=== PATIENT | male | born 1935 | race Caucasian/White ===

== ENCOUNTER 2019-12-08 14:32 | Emergency (ER) | payer MEDICARE ==
[~2019-12-08] VITALS: Ht 177.8 cm; Wt 69.9 kg
--- NOTE | 2019-12-08 15:25 | NUR ---
hill inserted without restistance, 50cc of dark red urine obtained, hill then flushed with 100cc of ns and a return of 200 ccs of pink colored urine, pt tolorated well. Dr Morse aware, pt denies pain and sates he feels better,. leg bag applied per pt request. pt asked when he should follow up with uroligist and was told next week by Dr Morse. 20 cc of dark red urine noted at discharge.
[2019-12-08] MEDS ORDERED: CEFDINIR300 MG PO (15:41)
--- NOTE | 2019-12-08 15:42 | Emergency Department Note ---
History of Present Illnes History of Present Illness Chief Complaint: can't urinate /suprapubic pain x 1 day History of Present Illness This is a 84 year old male. h/o bph and urinary retention. saw urologist today and hill was removed but failed to have a hill placed back in. was sent to er for coude hill placement Historian: Patient Arrival Mode: Car History limited by: condition of the patient Leather Belt Loop Cutter Required: No Onset (how long ago): day(s) (1) Location: suprapubic Quality: sharp Radiation: Reports non-radiation Severity: moderate Onset quality: gradual Duration (how long): day(s) (1) Timing of current episode: constant Chronicity: new Context: Denies recent illness, Denies recent surgery Relieving factors: none Exacerbating factors: movement Associated symptoms: Reports denies other symptoms Treatments prior to arrival: none Past Medical/Family History Physician Review I have reviewed the patient's past medical and family history. Any updates have been documented here. Past Medical History Recent Fever: No Clinical Suspicion of Infectio: No New/Unexplained Change in Ment: No Other Medical History: colon cancer Past Surgical History: Colon Resection Social History Smoking Cessation: Never Smoker Counseling Performed: No Alcohol Use: None Any Illegal Drug Use: No TB Exposure/Symptoms: No Physically hurt or threatened: No Family History Family history of heart diseas: No Other Any Pre-Existing Lines (PICC,: No Is patient up to date on immun: No Review of Systems Review of Systems Constitutional: Reports no symptoms EENTM: Reports no symptoms Cardiovascular: Reports no symptoms Respiratory: Reports no symptoms Gastrointestinal: Reports no symptoms Genitourinary: Reports as per HPI Musculoskeletal: Reports no symptoms Integumentary: Reports no symptoms Neurological: Reports no symptoms Psychological: Reports no symptoms Endocrine: Reports no symptoms Hematological/Lymphatic: Reports no symptoms Review of other systems: All other systems negative Physical Exam Related Data Vital signs reviewed: Yes Physical Exam CONSTITUTIONAL Constitutional: Present well-developed, Present well-nourished HENT HENT: Present normocephalic, Present atraumatic, Present oropharynx clear/moist, Present nose normal HENT L/R: Present left ext ear normal, Present right ext ear normal EYES Eyes: Reports PERRL, Reports conjunctivae normal NECK Neck: Present ROM normal PULMONARY Pulmonary: Present effort normal, Present breath sounds normal CARDIOVASCULAR Cardiovascular: Present regular rhythm, Present heart sounds normal, Present capillary refill normal, Present normal rate GASTROINTESTINAL Abdominal: Present soft, Present bowel sounds normal, Present tender (suprpubic), Present guarding GENITOURINARY Genitourinary: Present exam deferred SKIN Skin: Present warm, Present dry MUSCULOSKELETAL Musculoskeletal: Present ROM normal NEUROLOGICAL Neurological: Present alert, Present oriented x 3, Present no gross motor or sensory deficits PSYCHOLOGICAL Psychological: Present mood/affect normal, Present judgement normal Assessment & Plan Medical Decision Making MDM see below Reassessment Reassessment pain resolved s/p decompression of bladder s/p hill placement and urine output 200 ml Assessment & Plan Final Impression: (1) Urinary retention Depart Disposition: HOME, SELF-longterm Meds Active Scripts Cefdinir (OMNICEF) 300 Mg Capsule, 300 MG PO Q12H, #20 CAP Prov:JOVANNI PLUMMER 12/08/19 JOVANNI PLUMMER Dec 08, 2019 15:42
--- OUTSIDE RECORDS SUMMARY | 2019-12-08 16:08 | XMS REPORT ---
Author Author Galo Kelly Organization [employer] Address Unknown Phone Unavailable Care Team Providers Care Wire Bound Box Machine Helper Name Role Phone Checo Kelly CP Unavailable Allergies, Adverse Reactions, Alerts Substance Reaction Event Type N.K.D.A. Info Not Available Non Drug Allergy Problems Problem Type Condition Code Onset Dates Condition Statu s Assessment Carotid stenosis, right I65.21 Acti ve Assessment Dyslipidemia E78.5 Active Assessment Other symptoms involving cardiovascular system R09.89 Active Problem Dyslipidemia E78.5 Active Problem HTN (hypertension), benign I10 A ctive Problem Carotid stenosis, right I65.21 Acti ve Assessment Dizziness R42 Active Assessment HTN (hypertension), benign I10 A ctive Assessment Syncope and collapse R55 Active Medications Medication Code System Code Instructions Start Date End Date Status Dosage Tamsulosin HCl ND 72600642036 0.4 MG Orally Once a day Active 1 capsule Dutasteride ND 74319669978 0.5 MG Orally Once a day Active 1 capsule HydrOXYzine HCl ND 82977512601 25 MG Orally every 8 hrs Active 1 tablet as needed Doxazosin Mesylate ND 34348237882 4 MG Orally Once a day Active 1 tablet Aspirin ND 25346093006 81 MG Orally Once a day September 21, 2019 Active 1 tablet Vital Signs Date/Time: September 21, 2019 BMI 30.93 Index Weight 158.4 lbs Height 5'9 in Cardiac Monitoring Heart Rate 68 /min Blood Pressure Diastolic 58 mm Hg Blood Pressure Systolic 100 mm Hg Results No Known Results Summary Purpose [employer] Submission
--- OUTSIDE RECORDS SUMMARY | 2019-12-08 16:08 | XMS REPORT | Continuity of Care Document ---
Author Author [facility] t Organization [facility] Address [address] [place] [address] Phone Unavailable Care Team Providers Care Dental Hygienist Name Role Phone Unavailable Unavailable Payers Payer Name Policy Type Policy Number Effective Date Expiration Date S ource Problems Condition Name Condition Details Condition Category Status Onset Date Resolution Date Last Treatment Date Treating Clinician Comments Source HTN (hypertension), benign HTN (hypertension), benign Active Problem 09/23/2019 [facility] Cardiovascular Problem Active 2019-09-23 02:45:39 [facility] Dyslipidemia Dysl ipidemia Active Diagnosis 09/23/2019 [facility] Cardiovascular Diagnosis Active 2019-09-23 02:45:39 [facility] Syncope and collapse Sync ope and collapse Active Diagnosis 09/23/2019 [facility] Cardiovascular Diagnosis Active 2019-09-23 02:45:39 [facility] Dizziness Dizz iness Active Diagnosis 09/23/2019 [facility] Cardiovascular Diagnosis Active 2019-09-23 02:45:39 [facility] Other symptoms involving cardiovascular system Other symptoms involving cardiovascular system Active Diagnosis 09/23/2019 [facility] Cardiovascular Diagnosis Active 2019-09-23 02:45:39 [facility] [place] Carotid stenosis, right [place] tid stenosis, right Active Diagnosis 09/23/2019 [facility] Cardiovascular Diagnosis Active 2019-09-23 02:45:39 [facility] Allergies, Adverse Reactions, Alerts Allergy Name Allergy Type Status Severity Reaction(s) Onset Date Inacti ve Date Treating Clinician Comments Source N.MollyA. N.KCalixto.A. Active Info Not Available 2019-09-21 00:00:00 [facility] Medications Ordered Medication Name Filled Medication Name Start Date Stop Da te Current Medication? Ordering Clinician Indication Dosage Frequency Signature (SIG) Comments Components Source Doxazosin Mesylate 2019-09-23 02:45:39 Yes Mohamed Robin 1 tablet [facility] [place] Dutasteride 2019-09-23 02:45:39 Yes Mohamed Robin 1 capsule [facility] HydrOXYzine HCl 2019-09-23 02:45:39 Yes Mohamed Robin 1 tablet as needed [facility] [place] Tamsulosin HCl 2019-09-23 02:45:39 Yes Mohamed Robin 1 capsule [facility] Aspirin 2019-09-21 00:00:00 Yes Mohamed Robin 1 tablet [facility] [place] Vital Signs Vital Name Observation Time Observation Value Comments Source Weight 2019-09-21 19:30:00 [facility] [place] Heart Rate 2019-09-21 19:30:00 [facility] Diastolic (mm Hg) 2019-09-21 19:30:00 [facility] [place] Systolic (mm Hg) 2019-09-21 19:30:00 [facility] [place] Procedures This patient has no known procedures. Encounters Start Date/Time End Date/Time Encounter Type Admission Type [facility] Care Department Encounter ID Source 2019-09-21 14:30:00 2019-09-21 14:30:00 Outpatient Checo Tierney [id number] [employer] 2019-09-10 08:30:00 2019-09-10 08:30:00 Outpatient Checo Tierney [id number] [employer] 2019-09-03 15:15:00 2019-09-03 15:15:00 Outpatient Checo Tierney [id number] [employer] 2019-09-03 15:15:00 2019-09-03 15:15:00 Outpatient Checo Tierney [id number] [employer] 2019-08-12 03:48:00 2019-08-12 03:48:00 Emergency [facility] [id number] [facility] Results Test Description Test Time Test Comments Results Result Comments Source - DUP VEIN UNI LT 2019-11-27 13:17:00 Name: MADISON DELGADO [facility] : 1935 Age/S: 84 / M [id number] Unit #: [id number] Loc: [place] [address] Phys: Jodee Zamorano MD Acct: [id number] Dis Date: Status: REG CLI PHONE #: [phone] Exam Date: 11/27/2019 1120 FAX #: Reason: DVT EXAMS: CPT: [id number] [place] [id number] EXAMINATION: - DUP VEIN UNI LT. LOCATION: S17. HISTORY: Left leg swelling for 3 weeks, history of prostate cancer. COMPARISON: None. FINDINGS: Sonographic evaluation of left lower extremity was performed from the common femoral veins to the popliteal trifurcations utilizing grayscale, pulse Doppler, and color flow imaging. The veins are normally compressible. There is normal respiratory phasicity and augmentation demonstrated. Color flow is demonstrated. The visualized proximal calf veins demonstrate flow on color imaging. Additional findings: Thrombus is noted within proximal left GSV and mid thigh. Multiple enlarged lymph nodes in left groin measuring up to 2.3 x 1.9 cm, nonspecific. Scattered subcutaneous edema in the region of calf and thigh. IMPRESSION: Thrombophlebitis of left GSV, a superficial vein. No evidence of deep venous thrombus in the visualized portions of the left lower extremities. Multiple enlarged lymph nodes in left groin, nonspecific. Findings discussed with MD Jaun at 11/27/2019 1:10 PM. at 1317 Reported and signed by: Erin Javed M.D. CC: Jodee Zamorano MD Technologist: Jessenia Barrett, RT(R),RDMS(AB) Trnscb Date/Time: 11/27/2019 (1317) MayelinANS4 PAGE 1 Signed Report Name: MADISON ALFORD : 1935 Age/S: 84 / M [id number] Unit #: [id number] Loc: [place] [address] Phys: Jodee Zamorano MD Acct: [id number] Dis Date: Status: REG CLI PHONE #: [phone] Exam Date: 11/27/2019 1120 FAX #: Reason: DVT EXAMS: CPT: [id number] [place] [id number] &l t;Continued> Orig Print D/T: S: 11/27/2019 (9883) Probe: PAGE 2 Signed Report
--- OUTSIDE RECORDS SUMMARY | 2019-12-08 16:08 | XMS REPORT ---
Author Author Galo Kelly Organization [employer] Address Unknown Phone Unavailable Care Team Providers Care Senior Radiation Protection Technician Name Role Phone Checo Kelly CP Unavailable Allergies No Known Allergies Problems Problem Type Condition Code Onset Dates Condition Statu s Problem HTN (hypertension), benign I10 A ctive Problem Dyslipidemia E78.5 Active Assessment HTN (hypertension), benign I10 A ctive Assessment Dyslipidemia E78.5 Active Assessment Syncope and collapse R55 Active Assessment Dizziness R42 Active Medications No Known Medications Results No Known Results Summary Purpose [employer] Submission
--- OUTSIDE RECORDS SUMMARY | 2019-12-08 16:08 | XMS REPORT ---
Author Author Galo Kelly Organization [employer] Address Unknown Phone Unavailable Care Team Providers Care Bar Tacker Sewing Machine Name Role Phone Checo Kelly CP Unavailable Allergies, Adverse Reactions, Alerts Substance Reaction Event Type N.K.D.A. Info Not Available Non Drug Allergy Problems Problem Type Condition Code Onset Dates Condition Statu s Assessment Other symptoms involving cardiovascular system R09.89 Active Problem HTN (hypertension), benign I10 A ctive Problem Dyslipidemia E78.5 Active Assessment HTN (hypertension), benign I10 A ctive Assessment Dyslipidemia E78.5 Active Assessment Syncope and collapse R55 Active Assessment Dizziness R42 Active Medications Medication Code System Code Instructions Start Date End Date Status Dosage Doxazosin Mesylate [facility] 86137999438 4 MG Orally Once a day Active 1 tablet Dutasteride ND 17495582213 0.5 MG Orally Once a day Active 1 capsule HydrOXYzine HCl ND 43916470629 25 MG Orally every 8 hrs Active 1 tablet as needed Tamsulosin HCl ND 82275837254 0.4 MG Orally Once a day Active 1 capsule Results No Known Results Summary Purpose [employer] Submission
--- OUTSIDE RECORDS SUMMARY | 2019-12-08 16:08 | XMS REPORT | Continuity of Care Document ---
Author Author Roddy Erwin [facility] [employer] Address Unknown Phone Unavailable Care Team Providers Care Steno Pool Supervisor Name Role Phone [employer] Unavailable Un available Problems Problem Status Onset Date Classification Date Reported Comments Source HTN (hypertension), benign Act tricia Problem [facility] Cardiovascular Dyslipidemia Active Diagnosis 09/23/2019 [facility] Syncope and collapse Active Diagnosis 09/23/2019 [facility] Dizziness Active Diagnosis 09/23/2019 [facility] Cardiovascular Other symptoms involving cardiovascular system Active Diagnosis 09/23/2019 [facility] Cardi[facility] Carotid stenosis, right Active Diagnosis 09/23/2019 [facility] Cardiovascular Medications Medication Details Route Status Patient Instructions Ordering Provider Order Date Source Aspirin 1 tablet Orally Active 81 MG Orally Once a day Robin 09/21/2019 [facility] Doxazosin Mesylate 1 tablet Orally Active 4 MG Orally Once a day Robin [facility] Dutasteride 1 capsule Orally Active 0.5 MG Orally Once a da y Robin [facility] HydrOXYzine HCl 1 tablet as ne eded Orally Active 25 MG Orally every 8 hrs Robin [facility] Tamsulosin HCl 1 capsule Orally Active 0.4 MG Orally Once a da y Robin [facility] Allergies, Adverse Reactions, Alerts Substance Category Reaction Severity Reaction type Status Date Reported Comments Source N.K.D.A. Adverse Reaction Info Not Available Adverse Reaction 09/21/2019 [facility] Immunizations No Data Provided for This Section Results No Data Provided for This Section Pathology Reports No Data Provided for This Section Diagnostic Reports No Data Provided for This Section Consultation Notes No Data Provided for This Section Discharge Summaries No Data Provided for This Section History and Physicals No Data Provided for This Section Vital Signs Vital Sign Value Date Comments Source Weight 158.4 09/21/2019 [facility] Cardiovascular Heart Rate 68 09/21/2019 [facility] Diastolic (mm Hg) 58 09/21/2019 [facility] Systolic (mm Hg) 100 09/21/2019 [facility] Encounters No Data Provided for This Section Procedures No Data Provided for This Section Assessment and Plan No Data Provided for This Section Plan of Care No Data Provided for This Section Social History No Data Provided for This Section Family History No Data Provided for This Section Advance Directives No Data Provided for This Section Functional Status No Data Provided for This Section
== END 2019-12-08 16:37 | disposition home or self-care (01) ==
LOC: FSED 15:35
DX: R33.9 Retention of urine, unspecified (principal); Z85.038 Personal history of other malignant neoplasm of large intestine
CPT/HCPCS: 51700; 99283